=== PATIENT | female | born 1975 | race American Indian/Alaskan Native ===

== ENCOUNTER 2017-12-23 14:39 | Emergency (ER) | payer SELFPAY ==
[2017-12-23] MEDS ORDERED: DELTASONE PO ONE (17:34)
[2017-12-23] MEDS ORDERED: TYLENOL/CODEINE PO ONE (17:34)
--- NOTE | 2017-12-23 17:35 | Emergency Department Report ---
HPI - General Chief Complaint: Sore Throat Time Seen by Provider: 12/23/17 17:11 - HPI HPI: Patient is a 42-year-old female who presents to ED complaining of throat pain 4 days. Patient describes pain as throbbing in nature, 8 out of 10 intensity, nonradiating, localized to his throat. Admits pain with swallowing and eating. Patient admits no appetite due to throat pain. Patient admits dry, nonproductive cough. Patient admits fever for the first 2 days but not at the moment. Patient denies nausea/vomiting/abdominal pain/shortness of breath/chest pain/ headache. ED Past Medical Hx - Past Medical History Previous Medical History?: No - Surgical History Additional Surgical History: thyroidectomy, tubal ligation - Social History Smoking Status: Never Smoker Substance Use Type: Alcohol - Medications Home Medications: Home Medications Medication Instructions Recorded Confirmed Last Taken Type Ibuprofen [Motrin] 800 mg PO Q8HR #30 tablet 12/23/17 Unknown Rx Nystas/Diphen/Xyl Visc/Mylanta 15 ml MM TID #120 ml 12/23/17 Unknown Rx [Magic Mouthwash] ED Review of Systems ROS: Stated complaint: SORE THROAT Other details as noted in HPI Constitutional: denies: chills, fever Eyes: denies: eye pain, eye discharge, vision change ENT: throat pain. denies: ear pain Respiratory: denies: cough, shortness of breath, wheezing Cardiovascular: denies: chest pain, palpitations Endocrine: no symptoms reported Gastrointestinal: denies: abdominal pain, nausea, diarrhea Genitourinary: denies: urgency, dysuria, discharge Musculoskeletal: denies: back pain, joint swelling, arthralgia Skin: denies: rash, lesions Neurological: denies: headache, weakness, paresthesias Psychiatric: denies: anxiety, depression Hematological/Lymphatic: denies: easy bleeding, easy bruising Physical Exam - Physical Exam Vital Signs: Vital Signs 12/23/17 15:13 Temperature 100.6 F H Pulse Rate 84 Respiratory 16 Rate Blood Pressure 147/88 O2 Sat by Pulse 99 Oximetry Physical Exam: GENERAL: Alert and oriented x3, no apparent distress, Normal Gait, atraumatic. HEAD: Head is normocephalic and a-traumatic. EYES: Extra ocular muscles are intact. Pupils are equal, round, and reactive to light and accommodation. EARS: symetrical, atraumatic, non tender, ear canal clear and moderate cerumen, tympanic membrance non inflamed. gross auditory nml bilaterally. MOUTH:Mouth is well hydrated and without lesions. Tonsils erythematous and moderately swollen, Uvula midline, Tongue not elevated. Mucous membranes are moist. Posterior pharynx clear, no exudate or lesions. Patent airways. NECK: Supple. Non edematous, No carotid bruits. Anterior cervical lymphadenopathy. No C-spine tenderness LUNGS: Symetrical with respiration, No wheezing, no rales or crackles, CTAB. HEART: S1, S2 present, regular rate and rhythm without murmur, no rubs, no gallops. Non tender to palpation SKIN: Warm and dry, No lesions, No ulceration or induration present. ED Course Vital Signs 12/23/17 15:13 Temperature 100.6 F H Pulse Rate 84 Respiratory 16 Rate Blood Pressure 147/88 O2 Sat by Pulse 99 Oximetry ED Medical Decision Making - Medical Decision Making 42-year-old male presents with strep pharyngitis. ED course: Rapid strep tests ordered rapid strep test positive Patient received 1 dose of motrin,1.2 million units of penicillin and 60 mg of prednisone Fever reduced prior to discharge Vital signs stable patient is in no acute or respiratory distress. Discussed findings with patient about the positive strep. Discussed treatment in ED with patient Discussed the patient that strep throat is contagious and to limit sharing spoons and such. Pt. to be sent home on Motrin and a couple of days worth of prednisone. Discussed with patient follow-up with primary care physician. Patient verbally states he understands and will comply to follow-up. Critical care attestation.: If time is entered above; I have spent that time in minutes in the direct care of this critically ill patient, excluding procedure time. ED Disposition Clinical Impression: Strep pharyngitis, Tonsillitis Disposition: DC-01 TO HOME OR SELFCARE Is pt being admited?: No Does the pt Need Aspirin: No Condition: Stable Instructions: Strep Throat (ED), Tonsillitis (ED) Additional Instructions: Make sure to follow up with the primary care physician as discussed. Take all your medications as you've been prescribed. If you have any worsening symptoms or develop new symptoms please return to ED immediately. Prescriptions: Ibuprofen [Motrin] 800 mg PO Q8HR #30 tablet Nystas/Diphen/Xyl Visc/Mylanta [Magic Mouthwash] 15 ml MM TID #120 ml Referrals: PRIMARY CARE, [Primary Care Provider] - 3-5 Days CHRIS SMITH MD [Referring] - 3-5 Days SEBAS BAUTISTA MD [Staff Physician] - 3-5 Days Forms: Work/School Release Form(ED) Time of Disposition: 17:56
[2017-12-23] MEDS ORDERED: BICILLIN L-A IM ONE (17:51)
[2017-12-23 18:28] VITALS: BP 140/82
== END 2017-12-23 18:26 | disposition home or self-care (01) ==
LOC: ED 14:39
DX: J03.90 Acute tonsillitis, unspecified (principal); J02.0 Streptococcal pharyngitis; E89.0 Postprocedural hypothyroidism; Z98.51 Tubal ligation status
CPT/HCPCS: 87430; 96372; 99283; J0561; J7512

== ENCOUNTER 2018-03-25 19:35 | Emergency (ER) | payer SELFPAY ==
[2018-03-25] MEDS ORDERED: TYLENOL #3 PO ONE (20:11)
[2018-03-25] MEDS ORDERED: LIDOCAINE VISCOUS 2% PO ONE (20:11)
[2018-03-25 20:30] LABS: Hematocrit 37.2 % (30.3-42.9); Hemoglobin 12.5 gm/dl (10.1-14.3); Mean Corpuscular HGB Conc 34 % (30-34); Mean Corpuscular Volume 95 fl (79-97); Platelet Count 236 K/mm3 (140-440); Red Blood Count 3.93 M/mm3 (3.65-5.03); Red Cell Distribution Width 14.3 % (13.2-15.2)
[2018-03-25 20:40] LABS: Basophils % (Auto) 0.3 % (0.0-1.8); Eosinophils # (Auto) 0.1 K/mm3 (0.0-0.4); Eosinophils % (Auto) 0.8 % (0.0-4.3); Lymphocytes # (Auto) 2.3 K/mm3 (1.2-5.4); Lymphocytes % (Auto) 22.7 % (13.4-35.0); Monocytes % (Auto) 9.4 % (0.0-7.3)
[2018-03-25 20:52] LABS: Erythrocyte Sedimentation Rate 14 mm/Hr (0-20)
[2018-03-25 20:56] LABS: Calcium 8.7 mg/dL (8.4-10.2)
--- NOTE | 2018-03-25 20:56 | Emergency Department Report ---
ED General Adult HPI - General Chief complaint: Dental/Oral Stated complaint: SORE MOUTH Time Seen by Provider: 03/25/18 20:05 Source: patient Mode of arrival: Ambulatory Limitations: No Limitations - History of Present Illness Initial comments: This is a 42-year-old female nontoxic, well nourished in appearance, no acute signs of distress presents to the ED with c/o of stomatitis x3 days. Patient denies any fever, chills, headache, nausea, vomiting, chest pain, shortness of breathe, abdominal pain, numbness or tingling. Patient denies any allergies or PMH. -: days(s) (3) Radiation: non-radiation Severity scale (0 -10): 8 Quality: aching Consistency: constant Improves with: none Worsens with: none Associated Symptoms: denies other symptoms. denies: confusion, chest pain, cough, diaphoresis, fever/chills, headaches, loss of appetite, malaise, nausea/vomiting, rash, seizure, shortness of breath, syncope, weakness Treatments Prior to Arrival: none - Related Data Previous Rx's Medication Instructions Recorded Last Taken Type Nystas/Diphen/Xyl Visc/Mylanta 15 ml MM TID #120 ml 12/23/17 Unknown Rx [Magic Mouthwash] Ibuprofen [Motrin 800 MG tab] 800 mg PO Q8HR #30 tablet 02/23/18 Unknown Rx Phenazopyridine [Pyridium] 200 mg PO BID #8 tab 02/23/18 Unknown Rx Sulfamethoxazole/Trimethoprim 1 each PO BID #14 tablet 02/23/18 Unknown Rx [Bactrim DS TAB] Lidocaine Viscous 2% 15 ml MM Q6H PRN 5 Days udc 03/25/18 Unknown Rx valACYclovir [Valtrex] 500 mg PO BID #14 tab 03/25/18 Unknown Rx Allergies Allergy/AdvReac Type Severity Reaction Status Date / Time No Known Allergies Allergy Verified 03/25/18 19:50 ED Review of Systems ROS: Stated complaint: SORE MOUTH Other details as noted in HPI Constitutional: denies: chills, fever Eyes: denies: eye pain, eye discharge, vision change ENT: denies: ear pain, throat pain Respiratory: denies: cough, shortness of breath, wheezing Cardiovascular: denies: chest pain, palpitations Endocrine: no symptoms reported Gastrointestinal: denies: abdominal pain, nausea, diarrhea Genitourinary: denies: urgency, dysuria, discharge Musculoskeletal: denies: back pain, joint swelling, arthralgia Skin: denies: rash, lesions Neurological: denies: headache, weakness, paresthesias Psychiatric: denies: anxiety, depression Hematological/Lymphatic: denies: easy bleeding, easy bruising ED Past Medical Hx - Past Medical History Previous Medical History?: No - Surgical History Past Surgical History?: Yes Additional Surgical History: thyroidectomy, tubal ligation - Social History Smoking Status: Never Smoker Substance Use Type: Alcohol - Medications Home Medications: Home Medications Medication Instructions Recorded Confirmed Last Taken Type Nystas/Diphen/Xyl Visc/Mylanta 15 ml MM TID #120 ml 12/23/17 Unknown Rx [Magic Mouthwash] Ibuprofen [Motrin 800 MG tab] 800 mg PO Q8HR #30 tablet 02/23/18 Unknown Rx Phenazopyridine [Pyridium] 200 mg PO BID #8 tab 02/23/18 Unknown Rx Sulfamethoxazole/Trimethoprim 1 each PO BID #14 tablet 02/23/18 Unknown Rx [Bactrim DS TAB] Lidocaine Viscous 2% 15 ml MM Q6H PRN 5 Days udc 03/25/18 Unknown Rx valACYclovir [Valtrex] 500 mg PO BID #14 tab 03/25/18 Unknown Rx ED Physical Exam - General Limitations: No Limitations General appearance: alert, in no apparent distress - Head Head exam: Present: atraumatic, normocephalic - Eye Eye exam: Present: normal appearance - ENT ENT exam: Present: normal exam, normal orophraynx, other (tongue stomaitis present. No lips rash or skin break down.) - Expanded ENT Exam Expanded Ear exam: Present: normal external inspection Mouth exam: Present: normal external inspection Teeth exam: Present: normal inspection Throat exam: Positive: normal inspection - Neck Neck exam: Present: normal inspection, full ROM - Respiratory Respiratory exam: Present: normal lung sounds bilaterally. Absent: respiratory distress, wheezes, rales, rhonchi, stridor, chest wall tenderness, accessory muscle use, decreased breath sounds, prolonged expiratory - Cardiovascular Cardiovascular Exam: Present: regular rate, normal rhythm, normal heart sounds. Absent: bradycardia, tachycardia, irregular rhythm, systolic murmur, diastolic murmur, rubs, gallop - Extremities Exam Extremities exam: Present: normal inspection, full ROM - Back Exam Back exam: Present: normal inspection, full ROM - Neurological Exam Neurological exam: Present: alert, oriented X3 - Psychiatric Psychiatric exam: Present: normal affect, normal mood - Skin Skin exam: Present: warm, dry, intact, normal color. Absent: rash - Other Other exam information: No angioedema present. Uvula midline. ED Course Vital Signs 03/25/18 19:50 Temperature 98.9 F Pulse Rate 78 Respiratory 16 Rate Blood Pressure 112/61 O2 Sat by Pulse 100 Oximetry - Reevaluation(s) Reevaluation #1: 03/25/18 20:58 Patient is speaking in full sentences with no signs of distress noted. - Consultations Consultation #1: 03/25/18 20:58 Patient has been consulted with Eugenio White about patient history, physical exam, and labs and examined and screened patient and with labs within normal limits patient can be discharged with Valtrex and follow-up. ED Medical Decision Making - Lab Data Result diagrams: 03/25/18 20:18 03/25/18 20:18 Critical care attestation.: If time is entered above; I have spent that time in minutes in the direct care of this critically ill patient, excluding procedure time. ED Disposition Clinical Impression: Stomatitis and mucositis Disposition: DC-01 TO HOME OR SELFCARE Is pt being admited?: No Does the pt Need Aspirin: No Condition: Stable Instructions: Oral Mucositis (ED), Valacyclovir (By mouth) Additional Instructions: Follow-up with a primary care doctor in 3-5 days or if symptoms worsen and continue return to emergency room as soon as possible. Prescriptions: Lidocaine Viscous 2% 15 ml MM Q6H PRN 5 Days udc PRN Reason: Pain, Moderate (4-6) valACYclovir [Valtrex] 500 mg PO BID #14 tab Referrals: PRIMARY CARE, [Referring] - 3-5 Days JACQUELINE RUIZ MD [Staff Physician] - 3-5 Days [facility] [Outside] - 3-5 Days [facility] [Outside] - 3-5 Days Forms: Work/School Release Form(ED)
[2018-03-25 21:25] VITALS: BP 136/81
== END 2018-03-25 21:18 | disposition home or self-care (01) ==
LOC: ED 19:35
DX: K12.1 Other forms of stomatitis (principal); K12.30 Oral mucositis (ulcerative), unspecified
CPT/HCPCS: 36415; 80048; 85025; 85652